=== PATIENT | male | born 1980 | race Caucasian/White ===

== ENCOUNTER 2019-02-16 13:54 | Emergency (ER) | payer SELFPAY ==
[~2019-02-16] VITALS: Ht 203.2 cm; Wt 149.7 kg
[2019-02-16] MEDS ORDERED: fentaNYL PF VIAL 100 MCG/2 ML VIAL IV ONE (14:30)
--- NOTE | 2019-02-16 14:34 | EKG ---
[facility] [address] [place] [address] Test Date: 2019-02-16 Test Time: 14:03:04 Pat Name: TYLER GARCIA Department: Room: Gender: M [employer]: : 1980 Requested By: BHARTI SANCHEZ Order Number: [id number] Reading MD: Geremias Ramires Measurements Intervals [place] Rate: 97 P: 0 UT: 216 QRS: 6 QRSD: 100 T: 3 QT: 338 QTc: 433 Interpretive Statements SINUS RHYTHM PROLONGED UT INTERVAL Electronically Signed On 02-22-2019 13:06:44 CDT by Geremias Ramires
[2019-02-16 14:43] LABS: BASO % 1 % (0-3); EOS # 0.1 x10^3/uL (0.0-0.7); EOS % 2 % (0-3); HEMATOCRIT 31.6 % (39.0-53.0); HEMOGLOBIN 10.1 g/dL (13.0-17.5); LYMPH # 0.8 x10^3/uL (1.0-4.8); LYMPH % 14 % (24-48); MEAN CORPUSCULAR HEMOGLOBIN 26 pg (25-35); MEAN CORPUSCULAR HGB CONC 32 g/dL (31-37); MEAN CORPUSCULAR VOLUME 80 fL (79-100); MONO # 0.6 x10^3/uL (0.0-1.1); MONO % 10 % (0-9); NEUT # 4.2 x10^3uL (1.8-7.7); NEUT % 74 % (31-73); PLATELET COUNT 178 x10^3/uL (140-400); RED BLOOD COUNT 3.97 x10^6/uL (4.30-5.70); RED CELL DISTRIBUTION WIDTH 15.8 % (11.5-14.5); WHITE BLOOD COUNT 5.6 x10^3/uL (4.0-11.0)
[2019-02-16 14:53] LABS: CALCIUM 8.4 mg/dL (8.5-10.1); GFR 82.8; POTASSIUM 3.9 mmol/L (3.5-5.1)
[2019-02-16 15:00] LABS: ALBUMIN 3.2 g/dL (3.4-5.0); MAGNESIUM 1.9 mg/dL (1.8-2.4); TOTAL BILIRUBIN 0.5 mg/dL (0.2-1.0); TOTAL PROTEIN 6.4 g/dL (6.4-8.2)
[2019-02-16 15:11] LABS: D-DIMER < 0.27 ug/mlFEU (0.00-0.50)
--- NOTE | 2019-02-16 15:22 | PHYS DOC ---
Past Medical History Past Medical History: A-Fib, CAD, CHF, Hypertension, Other Additional Past Medical Histor: NSTEMI 06/2017,V TACH,DVT L leg Past Surgical History: Gastric Bypass, Tonsillectomy, Other Additional Past Surgical Histo: prtl L hip replacement,ex lap abd/L ankle,IVC in & out Alcohol Use: None Drug Use: None Adult General Chief Complaint Chief Complaint: CHEST PAIN HPI HPI Patient is a 38 year old male with extensive cardiac history who presents with tingling of chest pain and syncope. Patient states he flew 2 weeks ago from [place] and since he woke up this morning he didn't feel good and had shortness of breath and diaphoresis percent complaining of nonexertional lymphocytes #chest pain with radiation to bilateral arms and left jaw as a constant pain and rated his pain 8/10 associated with shortness of breath, dizziness, palpitation and nausea. Patient stated he decided to come to the hospital with his and had a syncopal episode while was at the parking lot without seizure activity that last about 45 second and had a fall and landed on his sacral area without injury to his head. Patient states he took 324 mg of aspirin and 3 nitroglycerin on today to come to the hospital with change of pain from 826. Patient has history of traumatic DVT and currently taking Eliquis. Patient had family history of coronary artery disease. Review of Systems Review of Systems Constitutional: Denies fever or chills [] Eyes: Denies change in visual acuity, redness, or eye pain [] HENT: Denies nasal congestion or sore throat [] Respiratory: Denies cough, reports shortness of breath [] Cardiovascular: No additional information not addressed in HPI [] GI: Denies abdominal pain, nausea, vomiting, bloody stools or diarrhea [] : Denies dysuria or hematuria [] Musculoskeletal: Denies back pain or joint pain [] Integument: Denies rash or skin lesions [] Neurologic: Denies headache, focal weakness or sensory changes [] Endocrine: Denies polyuria or polydipsia [] All other systems were reviewed and found to be within normal limits, except as documented in this note. Current Medications Current Medications Current Medications Medications (Trade) Dose Ordered Sig/Romi Start Time Stop Time Status Last Admin Dose Admin Fentanyl Citrate (Fentanyl 2ml Vial) 50 mcg 1X ONCE 02/16/19 14:30 02/16/19 14:43 DC 02/16/19 15:02 50 MCG Allergies Allergies Allergies Coded Allergies Type Severity Reaction Last Updated Verified heparin Allergy Severe "heparin induced thrombocytopenia" 02/16/19 Yes ketorolac Allergy Severe "anaphylaxis" 02/16/19 Yes adhesive Allergy Intermediate rash 02/16/19 Yes Physical Exam Physical Exam Constitutional: Well developed, well nourished, mild distress, non-toxic appearance, pale. [] HENT: Normocephalic, atraumatic Eyes: PERRLA, EOMI, conjunctiva normal, no discharge. [] Neck: Normal range of motion, no tenderness, supple, no stridor. [] Cardiovascular:Heart rate regular rhythm, no murmur [] Lungs & Thorax: Bilateral breath sounds clear to auscultation [] Abdomen: Bowel sounds normal, soft, no tenderness, no masses, no pulsatile masses. [] Skin: Warm, dry, no erythema, no rash. [] Back: No tenderness, no CVA tenderness. [] Extremities: No tenderness, no cyanosis, no clubbing, ROM intact, 1+ extremity edema. [] Neurologic: Alert and oriented X 3, normal motor function, normal sensory function, no focal deficits noted. [] Psychologic: Affect normal, judgement normal, mood normal. [] Current Patient Data Vital Signs Vital Signs Date Time Temp Pulse Resp B/P (MAP) Pulse Ox O2 Delivery O2 Flow Rate FiO2 02/16/19 15:02 16 95 Room Air 02/16/19 14:48 86 115/73 (87) 02/16/19 14:00 98.0 98.0 Lab Values Laboratory Tests Test 02/16/19 14:15 White Blood Count 5.6 x10^3/uL (4.0-11.0) Red Blood Count 3.97 x10^6/uL (4.30-5.70) L Hemoglobin 10.1 g/dL (13.0-17.5) L Hematocrit 31.6 % (39.0-53.0) L Mean Corpuscular Volume 80 fL (79-100) Mean Corpuscular Hemoglobin 26 pg (25-35) Mean Corpuscular Hemoglobin Concent 32 g/dL (31-37) Red Cell Distribution Width 15.8 % (11.5-14.5) H Platelet Count 178 x10^3/uL (140-400) Neutrophils (%) (Auto) 74 % (31-73) H Lymphocytes (%) (Auto) 14 % (24-48) L Monocytes (%) (Auto) 10 % (0-9) H Eosinophils (%) (Auto) 2 % (0-3) Basophils (%) (Auto) 1 % (0-3) Neutrophils # (Auto) 4.2 x10^3uL (1.8-7.7) Lymphocytes # (Auto) 0.8 x10^3/uL (1.0-4.8) L Monocytes # (Auto) 0.6 x10^3/uL (0.0-1.1) Eosinophils # (Auto) 0.1 x10^3/uL (0.0-0.7) Basophils # (Auto) 0.0 x10^3/uL (0.0-0.2) Prothrombin Time 15.0 SEC (11.7-14.0) H Prothrombin Time INR 1.2 (0.8-1.1) H D-Dimer (Klaudia) < 0.27 ug/mlFEU Sodium Level 142 mmol/L (136-145) Potassium Level 3.9 mmol/L (3.5-5.1) Chloride Level 105 mmol/L (98-107) Carbon Dioxide Level 29 mmol/L (21-32) Anion Gap 8 (6-14) Blood Urea Nitrogen 16 mg/dL (8-26) Creatinine 1.0 mg/dL (0.7-1.3) Estimated GFR (Cockcroft-Gault) 82.8 BUN/Creatinine Ratio 16 (6-20) Glucose Level 101 mg/dL (70-99) H Calcium Level 8.4 mg/dL (8.5-10.1) L Magnesium Level 1.9 mg/dL (1.8-2.4) Total Bilirubin 0.5 mg/dL (0.2-1.0) Aspartate Amino Transferase (AST) 13 U/L (15-37) L Alanine Aminotransferase (ALT) 16 U/L (16-63) Alkaline Phosphatase 81 U/L (46-116) Creatine Kinase 103 U/L (39-308) Troponin I Quantitative < 0.017 ng/mL (0.000-0.055) RT-Mnd-D-Type Natriuretic Peptide 117 pg/mL (0-124) Total Protein 6.4 g/dL (6.4-8.2) Albumin 3.2 g/dL (3.4-5.0) L Albumin/Globulin Ratio 1.0 (1.0-1.7) Lipase 59 U/L (73-393) L Laboratory Tests 02/16/19 14:15 Laboratory Tests 02/16/19 14:15 EKG EKG EKG interpreted by me. EKG at 1402 showed normal sinus rhythm at rate of 97, prolonged CO at 216, no acute ST and T-wave abnormalities. Radiology/Procedures Radiology/Procedures [][facility] [address] [place] [address] IMAGING REPORT Signed PATIENT: TYLER GARCIA ACCOUNT: [id number] : 1980 LOCATION: ER AGE: 38 SEX: M EXAM STATUS: REG ER ORD. PHYSICIAN: BHARTI SANCHEZ MD REASON: chest pain PROCEDURE: PORTABLE CHEST 1V EXAM: Chest, single view. HISTORY: Chest pain. COMPARISON: None. FINDINGS: A frontal view of the chest is obtained. There is hypoventilation with vascular crowding and atelectasis. There is no consolidation, pleural effusion or pneumothorax. There is a prominent cardiac silhouette, a component of which is likely due to portable technique. There is a cardiac pacemaker with leads overlying expected vision. IMPRESSION: Decreased lung volumes with associated atelectasis and vascular crowding. Electronically signed by: Fina Handy MD (02/16/2019 3:24 PM) [facility] DICTATED and SIGNED BY: FINA HANDY MD DATE: 02/16/19 1524 Course & Med Decision Making Course & Med Decision Making Pertinent Labs and Imaging studies reviewed. (See chart for details) Patient requiring admission for further evaluation and treatment. Discussed with Dr. Estrella who is in agreement with admission. Discussed findings and plan with patient and family, who acknowledge understanding and agreement. Dragon Disclaimer Dragon Disclaimer This electronic medical record was generated, in whole or in part, using a voice recognition dictation system. Departure Departure Impression: Primary Impression: Acute chest pain Additional Impressions: Syncope Anemia Disposition: 09 ADMITTED INPATIENT (at 1555) Admitting Physician: Vipul Hale (accepted admission at 1554) Problem Qualifiers BHARTI SANCHEZ MD Feb 16, 2019 15:22
--- NOTE | 2019-02-16 15:27 | RAD ---
EXAM: Chest, single view. HISTORY: Chest pain. COMPARISON: None. FINDINGS: A frontal view of the chest is obtained. There is hypoventilation with vascular crowding and atelectasis. There is no consolidation, pleural effusion or pneumothorax. There is a prominent cardiac silhouette, a component of which is likely due to portable technique. There is a cardiac pacemaker with leads overlying expected vision. IMPRESSION: Decreased lung volumes with associated atelectasis and vascular crowding. Electronically signed by: Fina Quintanilla MD (02/16/2019 3:24 PM) [place] [id number]
--- NOTE | 2019-02-16 16:14 | RAD ---
Examination: CT HEAD WO CONTRAST History: syncope, fall, no priors Comparison/Correlation: None Findings: Axial images of the head were obtained without contrast. Ventricles are normal size. No intracranial hemorrhage, midline shift, or mass effect. Very small subgaleal hematoma involving the right high parietal region noted. No depressed fracture. Mild chronic paranasal sinusitis noted. Impression: No suspicious intracranial process. PQRS Compliance Statement: One or more of the following individualized dose reduction techniques were utilized for this examination: 1. Automated exposure control 2. Adjustment of the mA and/or kV according to patient size 3. Use of iterative reconstruction technique Electronically signed by: Hiram Hogue MD (02/16/2019 4:11 PM) [id number]
--- NOTE | 2019-02-16 16:40 | PDOC1 ---
History and Physical Date of Admission Date of Admission DATE: 02/16/19 TIME: 16:40 Identification/Chief Complaint Chief Complaint seen in er, with angina. WAS TOLD HE NEEDED A CARDIAC CATH SOON BY [facility] IN [place] 38 year old male with extensive cardiac history who presents with tingling of chest pain and syncope. Patient states he flew 2 weeks ago from [place] and since he woke up this morning he didn't feel good and had shortness of breath and diaphoresis complaining of nonexertional #chest pain with radiation to bilateral arms and left jaw as a constant pain and rated his pain 8/10 associated with shortness of breath, dizziness, palpitation and nausea. Patient stated he decided to come to the hospital with his syncopal episode while was at the parking lot without seizure activity that last about 45 second and had a fall and landed on his sacral area . Past Medical History Past Medical History Past Medical History Past Medical History Past Medical History: A-Fib, CAD, CHF, Hypertension, Other Additional Past Medical Histor: NSTEMI 06/2017,V TACH,DVT L leg Past Surgical History: Gastric Bypass, Tonsillectomy, Other Additional Past Surgical Histo: prtl L hip replacement,ex lap abd/L ankle,IVC in & out Alcohol Use: None Drug Use: None NONSMOKER FAMILY HX [facility]ES[facility] IN [facility]. Cardiovascular: AFIB, CAD Family History Family History: High Cholestrol, Hypertension Social History Smoke: No ALCOHOL: none Drugs: None Current Problem List Problem List Problems Medical Problems: (1) Acute chest pain Status: Acute (2) Anemia Status: Acute (3) Syncope Status: Acute Current Medications Current Medications Current Medications Fentanyl Citrate (Fentanyl 2ml Vial) 50 mcg 1X ONCE IV Last administered on at 15:02; Start 02/16/19 at 14:30; Stop 02/16/19 at 14:43; Status DC Allergies Allergies: Coded Allergies: heparin (Verified Allergy, Severe, "heparin induced thrombocytopenia", ) ketorolac (Verified Allergy, Severe, "anaphylaxis", 02/16/19) adhesive (Verified Allergy, Intermediate, rash, 02/16/19) ROS Review of System Review of Systems Review of Systems Constitutional: Denies fever or chills [] Eyes: Denies change in visual acuity, redness, or eye pain [] HENT: Denies nasal congestion or sore throat [] Respiratory: Denies cough, reports shortness of breath [] Cardiovascular: No additional information not addressed in HPI [] GI: Denies abdominal pain, nausea, vomiting, bloody stools or diarrhea [] : Denies dysuria or hematuria [] Musculoskeletal: Denies back pain or joint pain [] Integument: Denies rash or skin lesions [] Neurologic: Denies headache, focal weakness or sensory changes [] Endocrine: Denies polyuria or polydipsia [] 14 pt systems were reviewed and found to be within normal limits, except as documented PSYCHOLOGICAL ROS: YES: Anxiety Eyes: No Blurry vision, No Decreased vision, No Double vision, No Dry eyes, No Excessive tearing, No Eye Pain, No Itchy Eyes, No Loss of vision, No Photophobia , No Scotomata, No Uses contacts, No Uses glasses, No Other Cardiovascular: yes Chest Pain Neurological: Yes Gait Disturbance Physical Exam Physical Exam Physical Exam Physical Exam Constitutional: Well developed, well nourished, mild distress, non-toxic appearance, pale. [] HENT: Normocephalic, atraumatic Eyes: PERRLA, EOMI, conjunctiva normal, no discharge. [] Neck: Normal range of motion, no tenderness, supple, no stridor. [] Cardiovascular:Heart rate regular rhythm, no murmur [] Lungs & Thorax: Bilateral breath sounds clear to auscultation [] Abdomen: Bowel sounds normal, soft, no tenderness, no masses, no pulsatile masses. [] Skin: Warm, dry, no erythema, no rash. [] Back: No tenderness, no CVA tenderness. [] Extremities: No tenderness, no cyanosis, no clubbing, ROM intact, 1+ extremity edema. [] Neurologic: Alert and oriented X 3, normal motor function, normal sensory function, no focal deficits noted. [] Psychologic: Affect normal, judgement poor, mood normal. [] General: Alert, Oriented X3, Cooperative, mild distress HEENT: Atraumatic, PERRLA, EOMI, Mucous membr. moist/pink Lungs: Clear to auscultation Heart: S1S2, no thrills Abdomen: Normal bowel sounds, Soft Neuro: Normal speech, Cranial nerves 3-12 NL Psych/Mental Status: Mental status NL Vitals Vitals Vital Signs Date Time Temp Pulse Resp B/P (MAP) Pulse Ox O2 Delivery O2 Flow Rate FiO2 02/16/19 15:02 16 95 Room Air 02/16/19 14:48 86 115/73 (87) 02/16/19 14:00 98.0 98.0 Labs Labs Laboratory Tests Test 02/16/19 14:15 White Blood Count 5.6 x10^3/uL (4.0-11.0) Red Blood Count 3.97 x10^6/uL (4.30-5.70) Hemoglobin 10.1 g/dL (13.0-17.5) Hematocrit 31.6 % (39.0-53.0) Mean Corpuscular Volume 80 fL (79-100) Mean Corpuscular Hemoglobin 26 pg (25-35) Mean Corpuscular Hemoglobin Concent 32 g/dL (31-37) Red Cell Distribution Width 15.8 % (11.5-14.5) Platelet Count 178 x10^3/uL (140-400) Neutrophils (%) (Auto) 74 % (31-73) Lymphocytes (%) (Auto) 14 % (24-48) Monocytes (%) (Auto) 10 % (0-9) Eosinophils (%) (Auto) 2 % (0-3) Basophils (%) (Auto) 1 % (0-3) Neutrophils # (Auto) 4.2 x10^3uL (1.8-7.7) Lymphocytes # (Auto) 0.8 x10^3/uL (1.0-4.8) Monocytes # (Auto) 0.6 x10^3/uL (0.0-1.1) Eosinophils # (Auto) 0.1 x10^3/uL (0.0-0.7) Basophils # (Auto) 0.0 x10^3/uL (0.0-0.2) Prothrombin Time 15.0 SEC (11.7-14.0) Prothromb Time International Ratio 1.2 (0.8-1.1) D-Dimer (Klaudia) < 0.27 ug/mlFEU Sodium Level 142 mmol/L (136-145) Potassium Level 3.9 mmol/L (3.5-5.1) Chloride Level 105 mmol/L (98-107) Carbon Dioxide Level 29 mmol/L (21-32) Anion Gap 8 (6-14) Blood Urea Nitrogen 16 mg/dL (8-26) Creatinine 1.0 mg/dL (0.7-1.3) Estimated GFR (Cockcroft-Gault) 82.8 BUN/Creatinine Ratio 16 (6-20) Glucose Level 101 mg/dL (70-99) Calcium Level 8.4 mg/dL (8.5-10.1) Magnesium Level 1.9 mg/dL (1.8-2.4) Total Bilirubin 0.5 mg/dL (0.2-1.0) Aspartate Amino Transf (AST/SGOT) 13 U/L (15-37) Alanine Aminotransferase (ALT/SGPT) 16 U/L (16-63) Alkaline Phosphatase 81 U/L (46-116) Creatine Kinase 103 U/L (39-308) Troponin I Quantitative < 0.017 ng/mL (0.000-0.055) EI-Nus-S-Type Natriuretic Peptide 117 pg/mL (0-124) Total Protein 6.4 g/dL (6.4-8.2) Albumin 3.2 g/dL (3.4-5.0) Albumin/Globulin Ratio 1.0 (1.0-1.7) Lipase 59 U/L (73-393) Laboratory Tests Test 02/16/19 14:15 White Blood Count 5.6 x10^3/uL (4.0-11.0) Red Blood Count 3.97 x10^6/uL (4.30-5.70) Hemoglobin 10.1 g/dL (13.0-17.5) Hematocrit 31.6 % (39.0-53.0) Mean Corpuscular Volume 80 fL (79-100) Mean Corpuscular Hemoglobin 26 pg (25-35) Mean Corpuscular Hemoglobin Concent 32 g/dL (31-37) Red Cell Distribution Width 15.8 % (11.5-14.5) Platelet Count 178 x10^3/uL (140-400) Neutrophils (%) (Auto) 74 % (31-73) Lymphocytes (%) (Auto) 14 % (24-48) Monocytes (%) (Auto) 10 % (0-9) Eosinophils (%) (Auto) 2 % (0-3) Basophils (%) (Auto) 1 % (0-3) Neutrophils # (Auto) 4.2 x10^3uL (1.8-7.7) Lymphocytes # (Auto) 0.8 x10^3/uL (1.0-4.8) Monocytes # (Auto) 0.6 x10^3/uL (0.0-1.1) Eosinophils # (Auto) 0.1 x10^3/uL (0.0-0.7) Basophils # (Auto) 0.0 x10^3/uL (0.0-0.2) Prothrombin Time 15.0 SEC (11.7-14.0) Prothromb Time International Ratio 1.2 (0.8-1.1) D-Dimer (Klaudia) < 0.27 ug/mlFEU Sodium Level 142 mmol/L (136-145) Potassium Level 3.9 mmol/L (3.5-5.1) Chloride Level 105 mmol/L (98-107) Carbon Dioxide Level 29 mmol/L (21-32) Anion Gap 8 (6-14) Blood Urea Nitrogen 16 mg/dL (8-26) Creatinine 1.0 mg/dL (0.7-1.3) Estimated GFR (Cockcroft-Gault) 82.8 BUN/Creatinine Ratio 16 (6-20) Glucose Level 101 mg/dL (70-99) Calcium Level 8.4 mg/dL (8.5-10.1) Magnesium Level 1.9 mg/dL (1.8-2.4) Total Bilirubin 0.5 mg/dL (0.2-1.0) Aspartate Amino Transf (AST/SGOT) 13 U/L (15-37) Alanine Aminotransferase (ALT/SGPT) 16 U/L (16-63) Alkaline Phosphatase 81 U/L (46-116) Creatine Kinase 103 U/L (39-308) Troponin I Quantitative < 0.017 ng/mL (0.000-0.055) GR-Epn-E-Type Natriuretic Peptide 117 pg/mL (0-124) Total Protein 6.4 g/dL (6.4-8.2) Albumin 3.2 g/dL (3.4-5.0) Albumin/Globulin Ratio 1.0 (1.0-1.7) Lipase 59 U/L (73-393) VTE Prophylaxis Ordered VTE Prophylaxis Devices: Yes VTE Pharmacological Prophylaxi: Yes Assessment/Plan Assessment/Plan Impression: Acute chest pain, unstable Syncope Anemia MORBID OBESITY CAD SELF REPORTED EF OF 35% BY L[facility]ISCAN LAST WEEK NORMOCYTIC ANEMIA pain left knee/ leg plan ADMITTED old records consult cardiology humera tonight d/w DR PHAN IN ER serial troponin i tele PT CHOOSES TO LEAVE AMA 75 MIN PT EXAM, RECORD REVIEW, > 50% OF TIME SPENT WITH RECORD REVIEW, PT EXAM, CHART REVIEW, PT CARE COORDINATION KOSTAS ALSTON MD Feb 16, 2019 16:40
[2019-02-16 17:00] VITALS: BP 110/65
--- NOTE | 2019-02-17 10:00 | PDOC3 ---
Discharge Summary Date of Admission: Feb 16, 2019 Date of Discharge: Feb 16, 2019 Follow-Up: 1-2 days Admitting Diagnosis comment: discharge dx Assessment/Plan Impression: Acute chest pain, unstable Syncope Anemia MORBID OBESITY CAD SELF REPORTED EF OF 35% BY [facility] LAST WEEK NORMOCYTIC ANEMIA pain left knee/ leg noncompliance plan ADMITTED old records consult cardiology humera bacilio d/w DR PHAN IN ER serial troponin i tele PT CHOOSES TO LEAVE AMA, may return if he desires d/c planning 23 min Identification/Chief Complaint Chief Complaint seen in er, with angina. WAS TOLD HE NEEDED A CARDIAC CATH SOON BY [facility] IN [place] 38 year old male with extensive cardiac history who presents with tingling of chest pain and syncope. Patient states he flew 2 weeks ago from [place] and since he woke up this morning he didn't feel good and had shortness of breath and diaphoresis complaining of nonexertional #chest pain with radiation to bilateral arms and left jaw as a constant pain and rated his pain 8/10 associated with shortness of breath, dizziness, palpitation and nausea. Patient stated he decided to come to the hospital with his syncopal episode while was at the parking lot without seizure activity that last about 45 second and had a fall and landed on his sacral area . Past Medical History Past Medical History Past Medical History Past Medical History Past Medical History: A-Fib, CAD, CHF, Hypertension, Other Additional Past Medical Histor: NSTEMI 06/2017,V TACH,DVT L leg Past Surgical History: Gastric Bypass, Tonsillectomy, Other Additional Past Surgical Histo: prtl L hip replacement,ex lap abd/L ankle,IVC in & out Alcohol Use: None Drug Use: None NONSMOK[facility] FAMILY HX OBES[facility] LIVES IN [facility]. Cardiovascular: AFIB, CAD Family History Family History: High Cholestrol, Hypertension Social History Smoke: No ALCOHOL: none Drugs: None Current Problem List Problem List Problems Medical Problems: (1) Acute chest pain Status: Acute (2) Anemia Status: Acute (3) Syncope Status: Acute Current Medications Current Medications Current Medications Fentanyl Citrate (Fentanyl 2ml Vial) 50 mcg 1X ONCE IV Last administered on at 15:02; Start 02/16/19 at 14:30; Stop 02/16/19 at 14:43; Status DC Allergies Allergies: Coded Allergies: heparin (Verified Allergy, Severe, "heparin induced thrombocytopenia", ) ketorolac (Verified Allergy, Severe, "anaphylaxis", 02/16/19) adhesive (Verified Allergy, Intermediate, rash, 02/16/19) ROS Review of System Review of Systems Review of Systems Constitutional: Denies fever or chills [] Eyes: Denies change in visual acuity, redness, or eye pain [] HENT: Denies nasal congestion or sore throat [] Respiratory: Denies cough, reports shortness of breath [] Cardiovascular: No additional information not addressed in HPI [] GI: Denies abdominal pain, nausea, vomiting, bloody stools or diarrhea [] : Denies dysuria or hematuria [] Musculoskeletal: Denies back pain or joint pain [] Integument: Denies rash or skin lesions [] Neurologic: Denies headache, focal weakness or sensory changes [] Endocrine: Denies polyuria or polydipsia [] 14 pt systems were reviewed and found to be within normal limits, except as documented PSYCHOLOGICAL ROS: YES: Anxiety Eyes: No Blurry vision, No Decreased vision, No Double vision, No Dry eyes, No Excessive tearing, No Eye Pain, No Itchy Eyes, No Loss of vision, No Photophobia , No Scotomata, No Uses contacts, No Uses glasses, No Other Cardiovascular: yes Chest Pain Neurological: Yes Gait Disturbance Physical Exam Physical Exam Physical Exam Physical Exam Constitutional: Well developed, well nourished, mild distress, non-toxic appearance, pale. [] HENT: Normocephalic, atraumatic Eyes: PERRLA, EOMI, conjunctiva normal, no discharge. [] Neck: Normal range of motion, no tenderness, supple, no stridor. [] Cardiovascular:Heart rate regular rhythm, no murmur [] Lungs & Thorax: Bilateral breath sounds clear to auscultation [] Abdomen: Bowel sounds normal, soft, no tenderness, no masses, no pulsatile masses. [] Skin: Warm, dry, no erythema, no rash. [] Back: No tenderness, no CVA tenderness. [] Extremities: No tenderness, no cyanosis, no clubbing, ROM intact, 1+ extremity edema. [] Neurologic: Alert and oriented X 3, normal motor function, normal sensory function, no focal deficits noted. [] Psychologic: Affect normal, judgement poor, mood normal. [] General: Alert, Oriented X3, Cooperative, mild distress HEENT: Atraumatic, PERRLA, EOMI, Mucous membr. moist/pink Lungs: Clear to auscultation Heart: S1S2, no thrills Abdomen: Normal bowel sounds, Soft Neuro: Normal speech, Cranial nerves 3-12 NL Psych/Mental Status: Mental status NL Vitals Vitals Vital Signs Date Time Temp Pulse Resp B/P (MAP) Pulse Ox O2 Delivery O2 Flow Rate FiO2 02/16/19 15:02 16 95 Room Air 02/16/19 14:48 86 115/73 (87) 02/16/19 14:00 98.0 98.0 FINAL DIAGNOSIS Problems Medical Problems: (1) Acute chest pain Status: Acute (2) Anemia Status: Acute (3) Syncope Status: Acute Brief Hospital Course Mr. Juárez is a 38 old [sex] who presented with [ ] CONDITION AT DISCHARGE: Comment (left ama) Discharge Medications Current Medications Fentanyl Citrate (Fentanyl 2ml Vial) 50 mcg 1X ONCE IV Last administered on at 15:02; Start 02/16/19 at 14:30; Stop 02/16/19 at 14:43; Status DC Vital Signs Vital Signs Date Time Temp Pulse Resp B/P (MAP) Pulse Ox O2 Delivery O2 Flow Rate FiO2 02/16/19 17:00 96 18 110/65 (80) 98 Room Air 02/16/19 14:00 98.0 98.0 Labs Laboratory Tests Test 02/16/19 14:15 White Blood Count 5.6 x10^3/uL (4.0-11.0) Red Blood Count 3.97 x10^6/uL (4.30-5.70) Hemoglobin 10.1 g/dL (13.0-17.5) Hematocrit 31.6 % (39.0-53.0) Mean Corpuscular Volume 80 fL (79-100) Mean Corpuscular Hemoglobin 26 pg (25-35) Mean Corpuscular Hemoglobin Concent 32 g/dL (31-37) Red Cell Distribution Width 15.8 % (11.5-14.5) Platelet Count 178 x10^3/uL (140-400) Neutrophils (%) (Auto) 74 % (31-73) Lymphocytes (%) (Auto) 14 % (24-48) Monocytes (%) (Auto) 10 % (0-9) Eosinophils (%) (Auto) 2 % (0-3) Basophils (%) (Auto) 1 % (0-3) Neutrophils # (Auto) 4.2 x10^3uL (1.8-7.7) Lymphocytes # (Auto) 0.8 x10^3/uL (1.0-4.8) Monocytes # (Auto) 0.6 x10^3/uL (0.0-1.1) Eosinophils # (Auto) 0.1 x10^3/uL (0.0-0.7) Basophils # (Auto) 0.0 x10^3/uL (0.0-0.2) Prothrombin Time 15.0 SEC (11.7-14.0) Prothromb Time International Ratio 1.2 (0.8-1.1) D-Dimer (Klaudia) < 0.27 ug/mlFEU Sodium Level 142 mmol/L (136-145) Potassium Level 3.9 mmol/L (3.5-5.1) Chloride Level 105 mmol/L (98-107) Carbon Dioxide Level 29 mmol/L (21-32) Anion Gap 8 (6-14) Blood Urea Nitrogen 16 mg/dL (8-26) Creatinine 1.0 mg/dL (0.7-1.3) Estimated GFR (Cockcroft-Gault) 82.8 BUN/Creatinine Ratio 16 (6-20) Glucose Level 101 mg/dL (70-99) Calcium Level 8.4 mg/dL (8.5-10.1) Magnesium Level 1.9 mg/dL (1.8-2.4) Total Bilirubin 0.5 mg/dL (0.2-1.0) Aspartate Amino Transf (AST/SGOT) 13 U/L (15-37) Alanine Aminotransferase (ALT/SGPT) 16 U/L (16-63) Alkaline Phosphatase 81 U/L (46-116) Creatine Kinase 103 U/L (39-308) Troponin I Quantitative < 0.017 ng/mL (0.000-0.055) YC-Eqe-H-Type Natriuretic Peptide 117 pg/mL (0-124) Total Protein 6.4 g/dL (6.4-8.2) Albumin 3.2 g/dL (3.4-5.0) Albumin/Globulin Ratio 1.0 (1.0-1.7) Lipase 59 U/L (73-393) Laboratory Tests Test 02/16/19 14:15 White Blood Count 5.6 x10^3/uL (4.0-11.0) Red Blood Count 3.97 x10^6/uL (4.30-5.70) Hemoglobin 10.1 g/dL (13.0-17.5) Hematocrit 31.6 % (39.0-53.0) Mean Corpuscular Volume 80 fL (79-100) Mean Corpuscular Hemoglobin 26 pg (25-35) Mean Corpuscular Hemoglobin Concent 32 g/dL (31-37) Red Cell Distribution Width 15.8 % (11.5-14.5) Platelet Count 178 x10^3/uL (140-400) Neutrophils (%) (Auto) 74 % (31-73) Lymphocytes (%) (Auto) 14 % (24-48) Monocytes (%) (Auto) 10 % (0-9) Eosinophils (%) (Auto) 2 % (0-3) Basophils (%) (Auto) 1 % (0-3) Neutrophils # (Auto) 4.2 x10^3uL (1.8-7.7) Lymphocytes # (Auto) 0.8 x10^3/uL (1.0-4.8) Monocytes # (Auto) 0.6 x10^3/uL (0.0-1.1) Eosinophils # (Auto) 0.1 x10^3/uL (0.0-0.7) Basophils # (Auto) 0.0 x10^3/uL (0.0-0.2) Prothrombin Time 15.0 SEC (11.7-14.0) Prothromb Time International Ratio 1.2 (0.8-1.1) D-Dimer (Klaudia) < 0.27 ug/mlFEU Sodium Level 142 mmol/L (136-145) Potassium Level 3.9 mmol/L (3.5-5.1) Chloride Level 105 mmol/L (98-107) Carbon Dioxide Level 29 mmol/L (21-32) Anion Gap 8 (6-14) Blood Urea Nitrogen 16 mg/dL (8-26) Creatinine 1.0 mg/dL (0.7-1.3) Estimated GFR (Cockcroft-Gault) 82.8 BUN/Creatinine Ratio 16 (6-20) Glucose Level 101 mg/dL (70-99) Calcium Level 8.4 mg/dL (8.5-10.1) Magnesium Level 1.9 mg/dL (1.8-2.4) Total Bilirubin 0.5 mg/dL (0.2-1.0) Aspartate Amino Transf (AST/SGOT) 13 U/L (15-37) Alanine Aminotransferase (ALT/SGPT) 16 U/L (16-63) Alkaline Phosphatase 81 U/L (46-116) Creatine Kinase 103 U/L (39-308) Troponin I Quantitative < 0.017 ng/mL (0.000-0.055) ZP-Uud-R-Type Natriuretic Peptide 117 pg/mL (0-124) Total Protein 6.4 g/dL (6.4-8.2) Albumin 3.2 g/dL (3.4-5.0) Albumin/Globulin Ratio 1.0 (1.0-1.7) Lipase 59 U/L (73-393) Allergies Allergies Coded Allergies Type Severity Reaction Last Updated Verified heparin Allergy Severe "heparin induced thrombocytopenia" 02/16/19 Yes ketorolac Allergy Severe "anaphylaxis" 02/16/19 Yes adhesive Allergy Intermediate rash 02/16/19 Yes Disposition/Orders: D/C to Home, Other (left ama) Patient Instructions d/c planning 23 min KOSTAS ALSTON MD Feb 17, 2019 10:00
--- NOTE | 2019-02-17 10:04 | DISCH ---
DISCHARGE INSTRUCTIONS Condition on Discharge Condition on Discharge: Guarded Activity After Discharge Activity Instructions for Disc: Activity as tolerated Lifting Instructions after Dis: No heavy lifting, No pulling or pushing Driving Instructions after Dis: Do not drive Checks after Discharge Checks after discharge: Check blood press - daily Contacting the DR. after DC Call your doctor for: If your condition worsens KOSTAS ALSTON MD Feb 17, 2019 10:04
== END 2019-02-16 17:26 | disposition left against medical advice (07) ==
LOC: ER 13:54 → ED HOLD 15:44 → UNDOADMIN 15:44
DX: R07.89 Other chest pain (principal); R55 Syncope and collapse; D64.89 Other specified anemias; R20.2 Paresthesia of skin; R06.02 Shortness of breath; I48.91 Unspecified atrial fibrillation; I11.0 Hypertensive heart disease with heart failure; I50.9 Heart failure, unspecified; Z86.718 Personal history of other venous thrombosis and embolism; Z90.89 Acquired absence of other organs; Z88.8 Allergy status to other drugs, medicaments and biological substances
CPT/HCPCS: 36415; 70450; 71045; 80053; 82550; 83690; 83735; 83880; 84484; 85025; 85379; 85610; 93005; 96374; 99285; J3010